=== PATIENT | female | born 1950 ===

== ENCOUNTER 2018-11-26 08:29 | Outpatient (CLI) | payer OTHER | END 2018-11-26 08:44 | disposition home or self-care (01) | LOC: SONOGRAMA 08:29 | DX: E04.1 Nontoxic single thyroid nodule (principal) ==

== ENCOUNTER 2020-01-20 09:54 | Outpatient (CLI) | payer OTHER | END 2020-01-20 10:00 | disposition home or self-care (01) | LOC: SONOGRAMA 09:54 | PROVIDERS: ATTEND Pathology Anatomic Pathology & Clinical Pathology | DX: D34 Benign neoplasm of thyroid gland (principal); E07.89 Other specified disorders of thyroid; E04.1 Nontoxic single thyroid nodule ==